=== PATIENT | female | born 1975 | race Caucasian/White ===

== ENCOUNTER 2017-07-05 06:26 | Inpatient (IN) | payer MEDICAID ==
[~2017-07-05] VITALS: Ht 160 cm; Wt 106.4 kg
[~2017-07-05 06:26] MED LIST: AMLO5TAB2 PO; LISI-167 PO; METF500T4 PO; ONDA4TAB10 PO; OXYC5TAB3 PO; SERT50TA5 PO
[2017-07-05] MEDS ORDERED: KETOROLAC 30 MG/1 ML IM ONE (07:30)
[2017-07-05] MEDS ORDERED: KETOROLAC 30 MG/1 ML ONE (07:31)
[2017-07-05 07:37] LABS: BASOPHILS # (AUTO) 0.05 x10^3/uL (0-0.1); BASOPHILS % (AUTO) 0 % (0-1); EOSINOPHILS # (AUTO) 0.36 x10^3/uL (0-0.4); EOSINOPHILS % (AUTO) 3 % (1-7); LYMPHOCYTES # (AUTO) 1.64 x10^3/uL (1-3.4); LYMPHOCYTES % (AUTO) 12 % (22-44); MD NO; MEAN CORPUSCULAR HGB CONC 33.4 g/dL (32.4-35.8); MEAN CORPUSCULAR VOLUME 86.9 fL (80-100); MEAN PLATELET VOLUME 8.1 fL (7.4-10.4); MONOCYTES # (AUTO) 1.01 x10^3/uL (0.2-0.8); MONOCYTES % (AUTO) 7 % (2-9); NEUTROPHILS # (AUTO) 10.83 x10^3/uL (1.8-6.8); NEUTROPHILS % (AUTO) 78 % (42-75); PLATELET COUNT 255 x10^3/uL (130-400); RED BLOOD COUNT 4.84 x10^6/uL (3.82-5.3); RED CELL DISTRIBUTION WIDTH 15.5 % (9.6-15.2)
[2017-07-05 07:50] LABS: ALANINE AMINOTRANSFERASE 30 U/L (12-78); ALBUMIN 3.3 g/dL (3.4-5.0); ANION GAP 6 mmol/L (5-15); CALCIUM 9.4 mg/dL (8.5-10.1); CHLORIDE 103 mmol/L (98-107); CREATININE 1.11 mg/dL (0.55-1.02)
[2017-07-05 07:54] LABS: ALKALINE PHOSPHATASE 96 U/L (45-117); BILIRUBIN,TOTAL 0.2 mg/dL (0.2-1.0); TOTAL PROTEIN 7.5 g/dL (6.4-8.2)
[2017-07-05 08:19] LABS: MICROSCOPIC INDICATED
[2017-07-05 08:27] LABS: CULTURE INDICATED? YES
[2017-07-05 09:30] LABS: CULTURE INDICATED? YES; MICROSCOPIC INDICATED
[2017-07-05] MEDS ORDERED: SODIUM CHLORIDE 0.9% 1,000ML IVBOLUS ONE (11:00)
[2017-07-05] MEDS ORDERED: CEFTRIAXONE PMX 1GM/50ML 50 ML IVPB ONE (11:00)
[2017-07-05] MEDS ORDERED: SODIUM CHLORIDE 0.9% 1,000 ML IV ONE (11:26)
[2017-07-05] MEDS ORDERED: SODIUM CHLORIDE FLUSH 10ML SYR IVF PRN (11:30)
[2017-07-05] MEDS ORDERED: CEFTRIAXONE PMX 1GM/50ML 50 ML ONE (11:43)
[2017-07-05] MEDS ORDERED: morphine SULFATE 10 MG/ML, 1ML IVPush PRN ×2 (12:00→19:00)
[2017-07-05] MEDS ORDERED: HYDROcodone/APAP 5/325 TABLET PO PRN (12:00)
[2017-07-05] MEDS ORDERED: CEFAZOLIN 1,000 MG ONE (13:55)
[2017-07-05] MEDS ORDERED: ONDANSETRON 2MG/ML, 2ML ONE (13:55)
[2017-07-05] MEDS ORDERED: DEXAMETHASONE 4 MG/ML, 1ML ONE (13:55)
[2017-07-05] MEDS ORDERED: PROPOFOL 10 MG/ML, 20ML ONE (13:55)
[2017-07-05] MEDS ORDERED: MIDAZOLAM 1 MG/ML, 2ML ONE (13:55)
[2017-07-05] MEDS ORDERED: FENTANYL PF 100 MCG/2ML ONE (13:56)
[2017-07-05 15:37] VITALS: BP 148/99
[2017-07-05] MEDS: LACTATED RINGERS 1,000 ML IV SCH (15:58)
[2017-07-05] MEDS ORDERED: OMNIPAQUE 350 MG/ML, 50 ML BOTTLE ONE (16:22)
[2017-07-05] MEDS ORDERED: PHENAZOPYRIDINE 200 MG TABLET PO PRN (17:00)
[2017-07-05] MEDS: ACETAMINOPHEN 325 MG TABLET PO PRN ×2 (19:02→23:07)
[2017-07-05 20:28] VITALS: BP 139/91
[2017-07-05] MEDS ORDERED: MORPHINE SULFATE 4 MG/ML, 1ML ONE (21:01)
[2017-07-05] MEDS: CEFTRIAXONE 2 GM in DEXTROSE 5% 50 ML IV SCH (23:03)
[2017-07-05] MEDS ORDERED: CEFTRIAXONE 2 GM in SODIUM CHLORIDE 0.9% 50 ML IV SCH (23:30)
[2017-07-06] MEDS: LACTATED RINGERS 1,000 ML IV SCH (01:00)
[2017-07-06 01:33] VITALS: BP 115/66
[2017-07-06 05:35] LABS: BASOPHILS # (AUTO) 0.03 x10^3/uL (0-0.1); BASOPHILS % (AUTO) 0 % (0-1); EOSINOPHILS % (AUTO) 0 % (1-7); LYMPHOCYTES # (AUTO) 1.55 x10^3/uL (1-3.4); LYMPHOCYTES % (AUTO) 13 % (22-44); MD NO; MEAN CORPUSCULAR HEMOGLOBIN 29.6 pg (27.0-34.8); MEAN CORPUSCULAR HGB CONC 33.4 g/dL (32.4-35.8); MEAN CORPUSCULAR VOLUME 88.6 fL (80-100); MEAN PLATELET VOLUME 8.9 fL (7.4-10.4); MONOCYTES # (AUTO) 0.44 x10^3/uL (0.2-0.8); MONOCYTES % (AUTO) 4 % (2-9); NEUTROPHILS # (AUTO) 10.19 x10^3/uL (1.8-6.8); NEUTROPHILS % (AUTO) 83 % (42-75); PLATELET COUNT 265 x10^3/uL (130-400); RED BLOOD COUNT 4.66 x10^6/uL (3.82-5.3); RED CELL DISTRIBUTION WIDTH 14.8 % (9.6-15.2)
[2017-07-06 05:52] LABS: CHLORIDE 104 mmol/L (98-107)
[2017-07-06 06:02] LABS: ALANINE AMINOTRANSFERASE 24 U/L (12-78); ALKALINE PHOSPHATASE 94 U/L (45-117); ANION GAP 6 mmol/L (5-15); BILIRUBIN,TOTAL 0.2 mg/dL (0.2-1.0); CALCIUM 9.7 mg/dL (8.5-10.1); CREATININE 0.84 mg/dL (0.55-1.02); TOTAL PROTEIN 7.2 g/dL (6.4-8.2)
[2017-07-06 06:35] VITALS: BP 145/88
[2017-07-06] MEDS: ENOXAPARIN 40 MG/0.4 ML SQ SCH (08:00)
[2017-07-06] MEDS: ACETAMINOPHEN 325 MG TABLET PO PRN (08:58)
[2017-07-06 12:32] VITALS: BP 148/87
[2017-07-06 19:01] VITALS: BP 165/107
[2017-07-06 20:55] VITALS: BP 151/98
[2017-07-06] MEDS ORDERED: TEMAZEPAM 15 MG CAPSULE PO PRN (23:00)
[2017-07-06] MEDS: CEFTRIAXONE 2 GM in DEXTROSE 5% 50 ML IV SCH (23:34)
[2017-07-07 01:18] VITALS: BP 172/114
[2017-07-07] MEDS: ACETAMINOPHEN 325 MG TABLET PO PRN (01:28)
[2017-07-07] MEDS ORDERED: hydrALAzine 20 MG/ML, 1ML IV PRN (02:00)
[2017-07-07 03:56] VITALS: BP 150/90
[2017-07-07] MEDS: ENOXAPARIN 40 MG/0.4 ML SQ SCH (08:00)
[2017-07-07 08:27] VITALS: BP_SYST 153; BP_SYST 157; BP_DIAS 109; BP_DIAS 115
[2017-07-07] MEDS ORDERED: CEFD300C37 PO (08:47)
[2017-07-07] MEDS ORDERED: CEFDINIR 300 MG CAPSULE PO SCH (09:00)
== END 2017-07-07 09:38 | disposition home or self-care (01) | DRG 872 ==
LOC: ED 08:01 → EDIP 11:26 → 3NE 15:22
PROVIDERS: ADMIT Internal Medicine Pulmonary Disease; ATTEND Internal Medicine Pulmonary Disease
PROC: 0T9B70Z Drainage of Bladder with Drainage Device, Via Natural or Artificial Opening (ICD-10-PCS; 2017-07-05)
PROC: 0T768DZ Dilation of Right Ureter with Intraluminal Device, Via Natural or Artificial Opening Endoscopic (ICD-10-PCS; principal; 2017-07-05 14:00)
DX: A41.9 Sepsis, unspecified organism (principal); N17.9 Acute kidney failure, unspecified; N13.6 Pyonephrosis; N20.2 Calculus of kidney with calculus of ureter; Z87.442 Personal history of urinary calculi
CPT/HCPCS: 36415; 74176; 74420; 80053; 81001; 83605; 83735; 84145; 84703; 85025; 87086; 87147; 96365; 96372; J0690; J0696; J1100; J1885; J2250; J2405; J2704; J3010; Q9967; C1758; C1769; C2617; J0360; J2270; J7030; J7120

== ENCOUNTER 2017-07-21 08:47 | Day surgery (SDC) | payer MEDICAID ==
[~2017-07-21] VITALS: Ht 160 cm; Wt 110.0 kg
[~2017-07-21 08:47] MED LIST changes: +CEFD300C37 PO
[2017-07-21] MEDS ORDERED: LIDOCAINE-MPF 1%, 2ML ONE (09:26)
[2017-07-21 09:37] LABS: HCG UR SG 1.015 (1.003-1.030)
[2017-07-21] MEDS ORDERED: LACTATED RINGERS 1,000 ML IV SCH (09:40)
[2017-07-21] MEDS ORDERED: TORADOL PO (09:43)
[2017-07-21 09:50] VITALS: BP 147/104
[2017-07-21] MEDS ORDERED: LIDOCAINE-MPF 1%, 2ML INFIL ONE (10:00)
[2017-07-21] MEDS ORDERED: PLEASE ENTER HEIGHT AND WEIGHT MC SCH (10:00)
[2017-07-21] MEDS ORDERED: FENTANYL PF 100 MCG/2ML ONE ×4 (10:03→12:47)
[2017-07-21] MEDS ORDERED: MIDAZOLAM 1 MG/ML, 2ML ONE (10:04)
[2017-07-21] MEDS ORDERED: SCOPOLAMINE PATCH, 1.5MG PATCH.TD72 TD ONE ×2 (10:21→10:30)
[2017-07-21] MEDS ORDERED: GABAPENTIN 300 MG CAPSULE ONE (10:21)
[2017-07-21] MEDS ORDERED: DIAZEPAM 5 MG TABLET ONE (10:22)
[2017-07-21] MEDS ORDERED: GABAPENTIN 300 MG CAPSULE PO ONE (10:30)
[2017-07-21] MEDS ORDERED: DIAZEPAM 5 MG TABLET PO ONE (10:30)
[2017-07-21] MEDS ORDERED: OxyconTIN ER 20 MG TAB.ER PO ONE (10:30)
[2017-07-21] MEDS ORDERED: LABETALOL 5MG/ML, 20ML ONE ×2 (11:05→13:08)
[2017-07-21] MEDS ORDERED: PROPOFOL 10 MG/ML, 20ML ONE ×2 (11:05)
[2017-07-21] MEDS ORDERED: ALBUTEROL HFA 90 MCG/SPRAY ONE (11:11)
[2017-07-21] MEDS ORDERED: EPHEDRINE 50 MG/ML, 1ML IVPush PRN (11:30)
[2017-07-21] MEDS ORDERED: MIDAZOLAM 1 MG/ML, 2ML IV PRN (11:30)
[2017-07-21] MEDS ORDERED: LABETALOL 5MG/ML, 20ML IV PRN (11:30)
[2017-07-21] MEDS ORDERED: ONDANSETRON 2MG/ML, 2ML IVPush PRN (11:30)
[2017-07-21] MEDS ORDERED: LORazepam 2 MG/ML, 1ML IVPush PRN (11:30)
[2017-07-21] MEDS ORDERED: ALBUTEROL/IPRATROPIUM 2.5MG/0.5MG, 3 ML NPPB PRN (11:30)
[2017-07-21] MEDS ORDERED: PROMETHAZINE 25 MG/ML, 1ML IV PRN (11:30)
[2017-07-21] MEDS ORDERED: PROMETHAZINE 12.5 MG SUPP PR PRN (11:30)
[2017-07-21] MEDS ORDERED: KETOROLAC 30 MG/1 ML ONE ×2 (12:28→17:10)
[2017-07-21] MEDS ORDERED: KETOROLAC 30 MG/1 ML IVPush ONE (12:30)
[2017-07-21] MEDS: FENTANYL PF 100 MCG/2ML IV PRN ×3 (12:40→13:26)
[2017-07-21] MEDS ORDERED: LORazepam 2 MG/ML, 1ML ONE (12:46)
[2017-07-21] MEDS ORDERED: OXYcodone 5 MG/5 ML ORAL.SOL UDC PO PRN (13:30)
[2017-07-21] MEDS ORDERED: KETOROLAC 30 MG/1 ML IV PRN (13:30)
[2017-07-21] MEDS ORDERED: OXYcodone/APAP 5/325MG TABLET PO PRN (15:00)
[2017-07-21] MEDS ORDERED: SUCCINYLCHOLINE 20 MG/ML, 10ML ONE (15:36)
[2017-07-21] MEDS: LABETALOL 5MG/ML, 20ML IVPush PRN ×2 (15:43→16:19)
[2017-07-21] MEDS ORDERED: hydrALAzine 20 MG/ML, 1ML IV ONE (16:30)
[2017-07-21] MEDS ORDERED: hydrALAzine 20 MG/ML, 1ML ONE (16:30)
[2017-07-21] MEDS ORDERED: KETOROLAC 30 MG/1 ML IVPush SCH (19:00)
== END 2017-07-21 17:40 ==
LOC: OUT 08:47
PROVIDERS: ATTEND Urology
DX: N20.0 Calculus of kidney (principal); E66.01 Morbid (severe) obesity due to excess calories; Z68.41 Body mass index [BMI] 40.0-44.9, adult; Z88.8 Allergy status to other drugs, medicaments and biological substances
CPT/HCPCS: 52353; 74420; 81025; 82360; 88300; 93005; C1758; C1769; J0330; J1885; J2060; J2250; J2704; J3010; J3490; J7120

== ENCOUNTER 2018-01-24 13:30 | Emergency (ER) | payer MEDICAID ==
[~2018-01-24] VITALS: Ht 160 cm; Wt 109.4 kg
[~2018-01-24 13:30] MED LIST changes: -AMLO5TAB2 PO; +AMLO5TAB7 PO; +METF500T17 PO; -METF500T4 PO; +TORADOL PO
[2018-01-24 13:48] VITALS: BP 141/96
== END 2018-01-24 14:50 | disposition home or self-care (01) ==
LOC: ED 14:40
DX: S80.862A Insect bite (nonvenomous), left lower leg, initial encounter (principal); W57.XXXA Bitten or stung by nonvenomous insect and other nonvenomous arthropods, initial encounter; Y93.89 Activity, other specified; Y92.89 Other specified places as the place of occurrence of the external cause; Y99.8 Other external cause status
CPT/HCPCS: 99283

== ENCOUNTER 2018-02-06 17:18 | Emergency (ER) | payer MEDICAID ==
[~2018-02-06] VITALS: Ht 160 cm; Wt 110.0 kg
[2018-02-06 18:44] VITALS: BP 173/114
[2018-02-06] MEDS ORDERED: CEPHALEXIN 500 MG CAPSULE ONE (19:27)
== END 2018-02-06 19:32 | disposition home or self-care (01) ==
LOC: ED 17:54
DX: L03.032 Cellulitis of left toe (principal); L03.031 Cellulitis of right toe; I10 Essential (primary) hypertension
CPT/HCPCS: 82962; 99283

== ENCOUNTER 2018-05-03 16:32 | Emergency (ER) | payer MEDICAID ==
[~2018-05-03] VITALS: Ht 160 cm; Wt 108.0 kg
[~2018-05-03 16:32] MED LIST changes: +AMLO-150 PO; -AMLO5TAB7 PO; +SERT50TA28 PO; -SERT50TA5 PO
[2018-05-03 17:28] LABS: BASOPHILS # (AUTO) 0.02 x10^3/uL (0-0.1); BASOPHILS % (AUTO) 0 % (0-1); EOSINOPHILS # (AUTO) 0.18 x10^3/uL (0-0.4); EOSINOPHILS % (AUTO) 2 % (1-7); LYMPHOCYTES # (AUTO) 1.79 x10^3/uL (1-3.4); LYMPHOCYTES % (AUTO) 15 % (22-44); MD NO; MEAN CORPUSCULAR VOLUME 87.8 fL (80-100); MEAN PLATELET VOLUME 8.7 fL (7.4-10.4); MONOCYTES # (AUTO) 0.88 x10^3/uL (0.2-0.8); MONOCYTES % (AUTO) 8 % (2-9); NEUTROPHILS # (AUTO) 8.75 x10^3/uL (1.8-6.8); NEUTROPHILS % (AUTO) 75 % (42-75); PLATELET COUNT 261 x10^3/uL (130-400); RED BLOOD COUNT 5.06 x10^6/uL (3.82-5.3); RED CELL DISTRIBUTION WIDTH 14.8 % (9.6-15.2)
[2018-05-03 17:41] LABS: ALBUMIN 3.3 g/dL (3.4-5.0); ANION GAP 8 mmol/L (5-15); CALCIUM 9.5 mg/dL (8.5-10.1); CHLORIDE 106 mmol/L (98-107); CREATININE 1.56 mg/dL (0.55-1.02)
--- NOTE | 2018-05-03 18:39 | NUR ---
PT AMBULATORY TO ROOM FROM LOBBY.
[2018-05-03] MEDS ORDERED: HYDROmorphone 2 MG/ML, 1ML IVPush PRN (19:30)
[2018-05-03] MEDS ORDERED: ONDANSETRON 2MG/ML, 2ML IVPush ONE (19:30)
[2018-05-03] MEDS ORDERED: KETOROLAC 30 MG/1 ML IVPush ONE (19:30)
[2018-05-03] MEDS ORDERED: ONDANSETRON 2MG/ML, 2ML ONE (20:03)
[2018-05-03] MEDS ORDERED: KETOROLAC 30 MG/1 ML ONE (20:03)
[2018-05-03] MEDS ORDERED: HYDROmorphone 2 MG/ML, 1ML ONE ×2 (20:04→20:56)
--- NOTE | 2018-05-03 20:14 | NUR ---
QUICK CATH URINE SPECIMEN OBTAINED; WILL BE WALKED TO LAB.
--- NOTE | 2018-05-03 20:25 | NUR ---
AMBULATORY TO & FROM [facility] W/OUT INCIDENT; GAIT STEADY
--- NOTE | 2018-05-03 20:32 | NUR ---
IV ATTEMPTED X 1; UNSUCCESSFUL. WARM BLANKET APPLIED TO ARMS BILAT.
[2018-05-03 20:50] LABS: MICROSCOPIC INDICATED
--- NOTE | 2018-05-03 20:56 | NUR ---
VO FROM DR WESLEY: CANCEL IV LOCK. GIVE PAIN MEDS IM (DILAUDID & TORADOL).
[2018-05-03 20:57] LABS: CULTURE INDICATED? NO
[2018-05-03] MEDS ORDERED: HYDROmorphone 2 MG/ML, 1ML IM PRN (21:00)
--- NOTE | 2018-05-03 21:04 | NUR ---
RETURNED FROM CT.
[2018-05-03] MEDS ORDERED: TAMSULOSIN 0.4 MG CAP.ER.24H PO ONE (22:00)
[2018-05-03] MEDS ORDERED: DOXYCYCLINE 100MG TABLET PO ONE (22:00)
[2018-05-03] MEDS ORDERED: TAMSULOSIN 0.4 MG CAP.ER.24H ONE (22:07)
[2018-05-03] MEDS ORDERED: DOXYCYCLINE 100MG TABLET ONE (22:07)
--- NOTE | 2018-05-03 22:30 | NUR ---
PT AMBULATORY TO & FROM BR W/OUT INCIDENT; GAIT STEADY.
[2018-05-03 22:36] VITALS: BP 135/94
== END 2018-05-03 22:38 | disposition home or self-care (01) ==
LOC: ED 19:38
DX: N20.1 Calculus of ureter (principal); J18.9 Pneumonia, unspecified organism; F17.200 Nicotine dependence, unspecified, uncomplicated
CPT/HCPCS: 36415; 74176; 80048; 81001; 81025; 82040; 85025; 96372; 96374; 99284; J1170; J1885

== ENCOUNTER 2018-09-01 18:40 | Emergency (ER) | payer MEDICAID ==
[~2018-09-01] VITALS: Ht 160 cm; Wt 111.5 kg
[2018-09-01 18:42] VITALS: BP 178/132
--- NOTE | 2018-09-01 19:26 | NUR ---
PT TO ROOM PLACED IN A GOWN AND ON THE MONITOR. PT AWAITING ERP AND ORDERS.
[2018-09-01] MEDS ORDERED: HYDROmorphone 1 MG/ML, 1ML VIAL ONE (19:42)
[2018-09-01] MEDS ORDERED: ONDANSETRON ODT 4 MG ONE (19:42)
--- NOTE | 2018-09-01 19:48 | NUR ---
PT TO X-RAY
[2018-09-01] MEDS ORDERED: HYDROmorphone 1 MG/ML, 1ML INJ IM PRN (20:00)
[2018-09-01] MEDS ORDERED: ONDANSETRON ODT 4 MG PO ONE (20:00)
--- NOTE | 2018-09-01 20:06 | NUR ---
PT MEDICATED ORDERED AND AWAITING X-RAY RESULTS.
== END 2018-09-01 20:37 | disposition home or self-care (01) ==
LOC: ED 20:30
DX: M47.896 Other spondylosis, lumbar region (principal); F17.200 Nicotine dependence, unspecified, uncomplicated; I10 Essential (primary) hypertension
CPT/HCPCS: 72110; 96372; 99283; J1170; Q0162

== ENCOUNTER 2020-03-29 22:57 | Inpatient (IN) | payer MEDICAID ==
[~2020-03-29] VITALS: Ht 157.5 cm; Wt 119.0 kg
--- NOTE | 2020-03-29 23:16 | NUR ---
IVF pre hospital 250ml ns. Upon arrival 1Liter NS wide open. 91% on RA,placed on 2L up to 98%. Lab here drawing all bloods and x2 bc. PCXR done. Will assist pt to bathroom for clean catch.
--- NOTE | 2020-03-29 23:22 | NUR ---
bc x2 drawn by lab.
[2020-03-29] MEDS ORDERED: SODIUM CHLORIDE 0.9% 1,000ML IVBOLUS ONE (23:30)
[2020-03-29] MEDS ORDERED: SODIUM CHLORIDE FLUSH 10ML SYR IVF ONE (23:30)
[2020-03-29] MEDS ORDERED: PIPERACILLIN/TAZO/PMX 4.5GM 100 ML IVPB ONE (23:30)
--- NOTE | 2020-03-29 23:40 | NUR ---
Clean catch urine collected and sent.
[2020-03-29] MEDS ORDERED: VANCOMYCIN 2,500 MG in SODIUM CHLORIDE 0.9% 500 ML IV ONE (23:45)
[2020-03-29 23:47] LABS: MEAN CORPUSCULAR HEMOGLOBIN 29.3 pg (27.0-34.8); MEAN CORPUSCULAR HGB CONC 32.9 g/dL (32.4-35.8); MEAN PLATELET VOLUME 9.1 fL (7.4-10.4); PLATELET COUNT 220 x10^3/uL (130-400); RED BLOOD COUNT 5.05 x10^6/uL (3.82-5.3); RED CELL DISTRIBUTION WIDTH 14.8 % (9.6-15.2)
[2020-03-29] MEDS ORDERED: [UNRECOGNIZED DRUG - REMARK] (23:51)
[2020-03-29 23:53] LABS: ALANINE AMINOTRANSFERASE 33 U/L (12-78); ALBUMIN 3.2 g/dL (3.4-5.0); ANION GAP 5 mmol/L (5-15); CALCIUM 9.8 mg/dL (8.5-10.1); CHLORIDE 101 mmol/L (98-107); CREATININE 1.21 mg/dL (0.55-1.02)
--- NOTE | 2020-03-29 23:56 | NUR ---
ABx started, x2 bc have been drawn by lab. Sharma placed on pt.
[2020-03-30] LABS: ALKALINE PHOSPHATASE 108 U/L (45-117); BILIRUBIN,TOTAL 0.7 mg/dL (0.2-1.0); TOTAL PROTEIN 7.7 g/dL (6.4-8.2)
[2020-03-30] MEDS ORDERED: VANCOMYCIN PER PHARMACY MC ONE
--- NOTE | 2020-03-30 00:06 | NUR ---
Dominick requested from pharmacy. 2Liters NS infused. VS updated.
[2020-03-30 00:09] LABS: C-REACTIVE PROTEIN, QUANT > 19.00 mg/dL (0.02-0.49)
--- NOTE | 2020-03-30 00:12 | NUR ---
Pt sleeping, RR unlabored. Requested vanco from pharmacy. Waiting for CT of leg r/o necro fascitis. VSS. Will continue to monitor. Pt to be admitted, med rec only x1 htn med unknown name.
[2020-03-30 00:14] LABS: MD YES
[2020-03-30 00:16] LABS: BAND#(MANUAL) 0.85 x10^3/uL; BANDS%(MANUAL) 4 % (0-7); LYMPH#(MANUAL) 2.34 x10^3/uL (1-3.4); LYMPHS% (MANUAL) 11 % (22-44); MONOS#(MANUAL) 0.43 x10^3/uL (0.3-2.7); MONOS% (MANUAL) 2 % (2-9); SEG#(MANUAL) 17.68 x10^3/uL (1.8-6.8); SEGS% (MANUAL) 83 % (42-75)
[2020-03-30 00:17] LABS: <PLATELET ESTIMATE> ADEQUATE; <RBC MORPHOLOGY> NORMAL; LARGE PLATELETS 1+
--- NOTE | 2020-03-30 00:33 | NUR ---
Daysi RN: Pt to ct with tech at this time.
[2020-03-30] MEDS ORDERED: OMNIPAQUE 350 MG/ML, 100ML BOTTLE ONE (00:36)
[2020-03-30 00:48] LABS: MICROSCOPIC INDICATED
--- NOTE | 2020-03-30 00:57 | NUR ---
Vanco infusion started. VSS. Pt sleeping, RR equal and unlabored.
[2020-03-30] MEDS ORDERED: SODIUM CHLORIDE 0.9% 1,000 ML IV ONE (01:00)
--- NOTE | 2020-03-30 01:08 | NUR ---
Dr Santoyo in to update pt on admission status and POC> Pt agrees with POC, will go to CT to r/o renal stone. Pt states she feels much better than when she came in. Family updated on status per request of pt. Waiting for CT.
--- NOTE | 2020-03-30 01:17 | NUR ---
Pt taken to CT via gurney. Pt will have med/surg bed within hour or so, no hospital bed ordered.
[2020-03-30] MEDS ORDERED: VANCOMYCIN PER PHARMACY MC PRN (01:30)
[2020-03-30] MEDS ORDERED: PHARMACY MAY ADJ FOR RENAL FX MC PRN (01:30)
[2020-03-30] MEDS ORDERED: KETOROLAC 30 MG/1 ML IV PRN (01:30)
[2020-03-30] MEDS ORDERED: hydrALAzine 20 MG/ML, 1ML IVPush PRN (01:30)
[2020-03-30] MEDS ORDERED: PROMETHAZINE 25 MG/ML, 1ML IM PRN (01:30)
[2020-03-30] MEDS ORDERED: HYDROmorphone 1 MG/ML, 1ML INJ ONE (01:31)
[2020-03-30] MEDS: HYDROmorphone 2 MG/ML, 1ML IVPush PRN ×4 (01:34→22:41)
--- NOTE | 2020-03-30 01:39 | NUR ---
Back from CT now c/o flank/back pain to right becoming severe no n/v. Medicated per order, will continue to monitor. VSS. Addendum: 03/30/20 at 0146 by [email or web address] Ammend: Left flank/back area. Pt now reports pain decrease, appears more comfotable. No n/v. Waiting for med/surg bed.
--- NOTE | 2020-03-30 02:06 | NUR ---
Concern re: placement of this pt and potential if covid pos. Discussed with Dr Maciel. CT still being read, rapid covid done and sent.
[2020-03-30] MEDS ORDERED: ACETAMINOPHEN 325 MG TABLET ONE (02:10)
--- NOTE | 2020-03-30 02:29 | NUR ---
Hunt placed via sterile technique, clear yellow urine output. SPecimen sent for repeat u/a. Pt has decrease in pain since meds. CT neg for obs stone. If rapid covid neg, pt will proceed to onc admit.
[2020-03-30 02:56] LABS: MICROSCOPIC INDICATED
--- NOTE | 2020-03-30 03:13 | NUR ---
IV line to hand flushed. Vanco finished. U/s lower ext done. Belongings in bag on back of [facility], tx to onc floor after report given. Pt agrees with poc. VSS.
[2020-03-30] MEDS ORDERED: PHARMACOKINETIC CONSULTATION MC ONE (03:30)
[2020-03-30] MEDS ORDERED: PHARMACOKINETIC MONITORING MC PRN (03:30)
[2020-03-30] MEDS: LACTATED RINGERS 1,000 ML IV SCH ×3 (03:45→19:54)
[2020-03-30 03:50] VITALS: BP 119/87
[2020-03-30] MEDS ORDERED: AMLO-210 PO (04:00)
[2020-03-30] MEDS: PIPERACILLIN/TAZO/PMX 3.375GM 50 ML IV SCH ×3 (05:36→18:29)
[2020-03-30 08:27] LABS: BASOPHILS % (AUTO) 0 % (0-1); EOSINOPHILS % (AUTO) 0 % (1-7); LYMPHOCYTES % (AUTO) 10 % (22-44); MEAN CORPUSCULAR HEMOGLOBIN 29.9 pg (27.0-34.8); MEAN CORPUSCULAR HGB CONC 33.1 g/dL (32.4-35.8); MEAN PLATELET VOLUME 8.9 fL (7.4-10.4); MONOCYTES % (AUTO) 8 % (2-9); NEUTROPHILS % (AUTO) 81 % (42-75); PLATELET COUNT 172 x10^3/uL (130-400); RED CELL DISTRIBUTION WIDTH 15.1 % (9.6-15.2)
[2020-03-30 08:30] LABS: MD NO
[2020-03-30 08:32] LABS: ANION GAP 4 mmol/L (5-15); CALCIUM 9.5 mg/dL (8.5-10.1); CHLORIDE 106 mmol/L (98-107)
[2020-03-30 08:33] LABS: CREATININE 1.08 mg/dL (0.55-1.02)
[2020-03-30] MEDS: SENNA/DOCUSATE TABLET PO SCH (08:50)
[2020-03-30] MEDS: ENOXAPARIN 40 MG/0.4 ML SQ SCH (08:50)
[2020-03-30 09:45] VITALS: BP 136/81
[2020-03-30 15:09] VITALS: BP 130/87
[2020-03-30] MEDS ORDERED: DEXTROSE 50%, 50ML SYRINGE IVPush PRN (16:30)
[2020-03-30] MEDS ORDERED: GLUCAGON 1 MG IM PRN (16:30)
[2020-03-30] MEDS ORDERED: DEXTROSE 4 GM TAB.CHEW PO PRN (16:30)
[2020-03-30 19:07] VITALS: BP 129/76
[2020-03-30] MEDS: VANCOMYCIN 2,000 MG in SODIUM CHLORIDE 0.9% 500 ML IV SCH (19:50)
[2020-03-30] MEDS: SODIUM CHLORIDE FLUSH 10ML SYR IVF SCH (19:54)
[2020-03-30] MEDS: INSULIN LISPRO 100 UNITS/ML, PEN SQ-INSULIN SCH (21:00)
[2020-03-31] MEDS: PIPERACILLIN/TAZO/PMX 3.375GM 50 ML IV SCH ×4 (01:07→18:32)
[2020-03-31 01:27] VITALS: BP 137/83
[2020-03-31] MEDS: ONDANSETRON 2MG/ML, 2ML IVPush PRN ×2 (03:39→10:45)
[2020-03-31] MEDS: LACTATED RINGERS 1,000 ML IV SCH ×2 (03:40→11:12)
[2020-03-31 04:12] LABS: BASOPHILS % (AUTO) 0 % (0-1); EOSINOPHILS % (AUTO) 1 % (1-7); LYMPHOCYTES % (AUTO) 8 % (22-44); MEAN CORPUSCULAR HEMOGLOBIN 29.4 pg (27.0-34.8); MEAN CORPUSCULAR HGB CONC 32.7 g/dL (32.4-35.8); MEAN PLATELET VOLUME 8.7 fL (7.4-10.4); MONOCYTES % (AUTO) 7 % (2-9); NEUTROPHILS % (AUTO) 84 % (42-75); PLATELET COUNT 182 x10^3/uL (130-400); RED BLOOD COUNT 4.31 x10^6/uL (3.82-5.3); RED CELL DISTRIBUTION WIDTH 14.9 % (9.6-15.2)
[2020-03-31] MEDS: ACETAMINOPHEN 325 MG TABLET PO PRN ×3 (04:15→22:12)
[2020-03-31] MEDS: HYDROmorphone 2 MG/ML, 1ML IVPush PRN ×3 (04:16→22:12)
[2020-03-31 04:19] LABS: MD NO
[2020-03-31 04:25] LABS: ALBUMIN 2.6 g/dL (3.4-5.0); CALCIUM 9.8 mg/dL (8.5-10.1); CHLORIDE 105 mmol/L (98-107)
[2020-03-31 04:31] LABS: ALANINE AMINOTRANSFERASE 26 U/L (12-78); ALKALINE PHOSPHATASE 100 U/L (45-117); ANION GAP 4 mmol/L (5-15); BILIRUBIN,TOTAL 0.6 mg/dL (0.2-1.0); CREATININE 1.17 mg/dL (0.55-1.02); TOTAL PROTEIN 6.6 g/dL (6.4-8.2)
[2020-03-31] MEDS: PANTOPRAZOLE 40MG TABLET PO SCH (06:06)
[2020-03-31 06:43] VITALS: BP 109/66
[2020-03-31] MEDS: SODIUM CHLORIDE FLUSH 10ML SYR IVF SCH ×2 (07:49→21:39)
[2020-03-31] MEDS: ENOXAPARIN 40 MG/0.4 ML SQ SCH (07:50)
[2020-03-31] MEDS: SENNA/DOCUSATE TABLET PO SCH (07:50)
[2020-03-31 08:08] VITALS: BP 103/68
[2020-03-31] MEDS: INSULIN LISPRO 100 UNITS/ML, PEN SQ-INSULIN SCH ×4 (08:40→21:00)
[2020-03-31] MEDS ORDERED: NALOXONE 1 MG/ML, 2ML ONE (12:44)
[2020-03-31] MEDS ORDERED: NALOXONE 0.4 MG/ML, 1ML ONE (12:44)
[2020-03-31] MEDS ORDERED: CODE BLUE RESPONSE XX ONE (13:30)
[2020-03-31] MEDS ORDERED: NALOXONE 0.4 MG/ML, 1ML IVPush PRN (14:00)
[2020-03-31 14:15] LABS: BASOPHILS % (AUTO) 0 % (0-1); EOSINOPHILS % (AUTO) 0 % (1-7); LYMPHOCYTES % (AUTO) 10 % (22-44); MEAN CORPUSCULAR HEMOGLOBIN 29.4 pg (27.0-34.8); MEAN CORPUSCULAR HGB CONC 32.2 g/dL (32.4-35.8); MEAN PLATELET VOLUME 8.7 fL (7.4-10.4); MONOCYTES % (AUTO) 4 % (2-9); NEUTROPHILS % (AUTO) 85 % (42-75); PLATELET COUNT 196 x10^3/uL (130-400)
[2020-03-31] MEDS: VANCOMYCIN 2,000 MG in SODIUM CHLORIDE 0.9% 500 ML IV SCH (14:18)
[2020-03-31 14:27] LABS: ALANINE AMINOTRANSFERASE 82 U/L (12-78); ALBUMIN 2.4 g/dL (3.4-5.0); ANION GAP 10 mmol/L (5-15); CALCIUM 9.4 mg/dL (8.5-10.1); CHLORIDE 104 mmol/L (98-107); CREATININE 2.17 mg/dL (0.55-1.02)
[2020-03-31 14:31] LABS: ALKALINE PHOSPHATASE 112 U/L (45-117); BILIRUBIN,TOTAL 0.5 mg/dL (0.2-1.0); TOTAL PROTEIN 6.6 g/dL (6.4-8.2); TROPONIN I 0.062 ng/mL (0.000-0.045)
[2020-03-31 14:42] LABS: MD SCAN
[2020-03-31] MEDS ORDERED: LACTATED RINGERS 1,000 ML IVBOLUS ONE (15:00)
[2020-03-31 19:55] LABS: TROPONIN I 0.288 ng/mL (0.000-0.045)
[2020-04-01] MEDS: PIPERACILLIN/TAZO/PMX 3.375GM 50 ML IV SCH ×4 (00:40→17:44)
[2020-04-01] MEDS: HYDROmorphone 2 MG/ML, 1ML IVPush PRN ×3 (03:22→21:28)
[2020-04-01] MEDS: ACETAMINOPHEN 325 MG TABLET PO PRN ×3 (03:23→17:42)
[2020-04-01 05:00] LABS: ALANINE AMINOTRANSFERASE 320 U/L (12-78); ALBUMIN 2.3 g/dL (3.4-5.0); ANION GAP 6 mmol/L (5-15); CALCIUM 9.8 mg/dL (8.5-10.1); CHLORIDE 104 mmol/L (98-107); CREATININE 2.08 mg/dL (0.55-1.02)
[2020-04-01 05:02] LABS: ALKALINE PHOSPHATASE 109 U/L (45-117); BILIRUBIN,TOTAL 0.6 mg/dL (0.2-1.0); TOTAL PROTEIN 6.4 g/dL (6.4-8.2)
[2020-04-01] MEDS: PANTOPRAZOLE 40MG TABLET PO SCH (06:35)
[2020-04-01] MEDS: INSULIN LISPRO 100 UNITS/ML, PEN SQ-INSULIN SCH ×4 (07:00→20:58)
[2020-04-01] MEDS: LINEZOLID 600 MG TABLET PO SCH ×2 (07:58→20:58)
[2020-04-01] MEDS: SENNA/DOCUSATE TABLET PO SCH (07:58)
[2020-04-01] MEDS: ENOXAPARIN 40 MG/0.4 ML SQ SCH (07:58)
[2020-04-01] MEDS: SODIUM CHLORIDE FLUSH 10ML SYR IVF SCH ×2 (07:59→20:56)
[2020-04-01 08:49] LABS: TROPONIN I 0.199 ng/mL (0.000-0.045)
[2020-04-01] MEDS: LIDODERM 5% PATCH TD SCH (10:35)
[2020-04-01] MEDS: ONDANSETRON 2MG/ML, 2ML IVPush PRN (15:24)
[2020-04-01] MEDS: LIDODERM REMOVE PATCH NOTE XX SCH (21:00)
[2020-04-02] MEDS ORDERED: OXYcodone/APAP 5/325MG TABLET PO PRN
[2020-04-02] MEDS: ONDANSETRON 2MG/ML, 2ML IVPush PRN (00:30)
[2020-04-02] MEDS: PIPERACILLIN/TAZO/PMX 3.375GM 50 ML IV SCH ×4 (00:42→22:03)
[2020-04-02 04:50] LABS: BASOPHILS % (AUTO) 1 % (0-1); EOSINOPHILS % (AUTO) 4 % (1-7); LYMPHOCYTES % (AUTO) 11 % (22-44); MEAN CORPUSCULAR HEMOGLOBIN 29.6 pg (27.0-34.8); MEAN CORPUSCULAR HGB CONC 33.2 g/dL (32.4-35.8); MEAN PLATELET VOLUME 8.9 fL (7.4-10.4); MONOCYTES % (AUTO) 7 % (2-9); NEUTROPHILS % (AUTO) 78 % (42-75); PLATELET COUNT 214 x10^3/uL (130-400); RED BLOOD COUNT 4.02 x10^6/uL (3.82-5.3); RED CELL DISTRIBUTION WIDTH 14.9 % (9.6-15.2)
[2020-04-02 04:51] LABS: ALBUMIN 2.4 g/dL (3.4-5.0); ANION GAP 6 mmol/L (5-15); CALCIUM 10.1 mg/dL (8.5-10.1); CHLORIDE 104 mmol/L (98-107)
[2020-04-02 04:54] LABS: ALANINE AMINOTRANSFERASE 298 U/L (12-78); ALKALINE PHOSPHATASE 116 U/L (45-117); BILIRUBIN,TOTAL 0.6 mg/dL (0.2-1.0); CREATININE 1.82 mg/dL (0.55-1.02); TOTAL PROTEIN 6.9 g/dL (6.4-8.2)
[2020-04-02 04:58] LABS: MD NO
[2020-04-02] MEDS: HYDROmorphone 2 MG/ML, 1ML IVPush PRN (05:30)
[2020-04-02] MEDS: PANTOPRAZOLE 40MG TABLET PO SCH (06:16)
[2020-04-02] MEDS ORDERED: OXYcodone 5 MG/5 ML ORAL.SOL UDC PO PRN (06:30)
[2020-04-02] MEDS: INSULIN LISPRO 100 UNITS/ML, PEN SQ-INSULIN SCH ×4 (08:09→20:52)
[2020-04-02] MEDS: ACETAMINOPHEN 325 MG TABLET PO PRN ×2 (08:10→19:11)
[2020-04-02] MEDS: SENNA/DOCUSATE TABLET PO SCH (08:10)
[2020-04-02] MEDS: SODIUM CHLORIDE FLUSH 10ML SYR IVF SCH ×2 (08:11→20:52)
[2020-04-02] MEDS: ENOXAPARIN 30 MG/0.3 ML SQ SCH ×2 (08:11→20:52)
[2020-04-02] MEDS: LIDODERM 5% PATCH TD SCH (08:12)
[2020-04-02] MEDS ORDERED: ENOXAPARIN 30 MG/0.3 ML SQ SCH (09:00)
[2020-04-02] MEDS: OXYcodone IR 5MG TABLET PO PRN ×2 (14:49→21:03)
[2020-04-02 19:32] VITALS: BP 139/90
[2020-04-02] MEDS: LIDODERM REMOVE PATCH NOTE XX SCH (20:56)
[2020-04-03 00:18] VITALS: BP 125/81
[2020-04-03] MEDS: OXYcodone IR 5MG TABLET PO PRN (02:37)
[2020-04-03] MEDS: PIPERACILLIN/TAZO/PMX 3.375GM 50 ML IV SCH ×4 (03:57→21:42)
[2020-04-03 05:40] LABS: ALBUMIN 2.4 g/dL (3.4-5.0); ANION GAP 2 mmol/L (5-15); CHLORIDE 105 mmol/L (98-107)
[2020-04-03 05:44] LABS: CREATININE 1.56 mg/dL (0.55-1.02)
[2020-04-03 05:45] LABS: ALANINE AMINOTRANSFERASE 204 U/L (12-78); ALKALINE PHOSPHATASE 132 U/L (45-117); BILIRUBIN,TOTAL 0.5 mg/dL (0.2-1.0); TOTAL PROTEIN 6.7 g/dL (6.4-8.2)
[2020-04-03] MEDS: PANTOPRAZOLE 40MG TABLET PO SCH (06:04)
[2020-04-03] MEDS: ACETAMINOPHEN 325 MG TABLET PO PRN (06:15)
[2020-04-03] MEDS: INSULIN LISPRO 100 UNITS/ML, PEN SQ-INSULIN SCH ×4 (07:00→21:00)
[2020-04-03 07:23] VITALS: BP 137/84
[2020-04-03] MEDS: SENNA/DOCUSATE TABLET PO SCH (09:28)
[2020-04-03] MEDS: ENOXAPARIN 30 MG/0.3 ML SQ SCH ×2 (09:28→21:43)
[2020-04-03] MEDS: LIDODERM 5% PATCH TD SCH (09:29)
[2020-04-03] MEDS: SODIUM CHLORIDE FLUSH 10ML SYR IVF SCH ×2 (09:30→21:43)
[2020-04-03] MEDS: BUTALB/APAP/CAFFEINE 50MG/325MG/40MG PO PRN ×2 (11:12→21:35)
[2020-04-03] MEDS ORDERED: MAGNESIUM HYDROXIDE 8%, 30ML UDC PO PRN (12:30)
[2020-04-03 13:48] VITALS: BP 133/82
[2020-04-03 18:29] VITALS: BP 138/88
[2020-04-03] MEDS: LIDODERM REMOVE PATCH NOTE XX SCH (21:00)
[2020-04-04 01:14] VITALS: BP 144/98
[2020-04-04] MEDS: PIPERACILLIN/TAZO/PMX 3.375GM 50 ML IV SCH ×2 (03:56→10:46)
[2020-04-04 05:25] LABS: BASOPHILS % (AUTO) 0 % (0-1); EOSINOPHILS % (AUTO) 3 % (1-7); LYMPHOCYTES % (AUTO) 13 % (22-44); MEAN CORPUSCULAR HEMOGLOBIN 29.8 pg (27.0-34.8); MEAN CORPUSCULAR HGB CONC 33.6 g/dL (32.4-35.8); MEAN PLATELET VOLUME 8.4 fL (7.4-10.4); MONOCYTES % (AUTO) 6 % (2-9); NEUTROPHILS % (AUTO) 77 % (42-75); PLATELET COUNT 255 x10^3/uL (130-400); RED BLOOD COUNT 3.93 x10^6/uL (3.82-5.3); RED CELL DISTRIBUTION WIDTH 14.3 % (9.6-15.2)
[2020-04-04] MEDS ORDERED: MAALOX/HYOSCYAMINE/LIDOCAINE 45 ML BTL PO ONE (06:00)
[2020-04-04 06:15] LABS: MD SCAN
[2020-04-04] MEDS: PANTOPRAZOLE 40MG TABLET PO SCH (06:19)
[2020-04-04] MEDS: INSULIN LISPRO 100 UNITS/ML, PEN SQ-INSULIN SCH ×4 (07:00→21:34)
[2020-04-04 07:04] VITALS: BP 146/89
[2020-04-04 07:46] LABS: CHLORIDE 103 mmol/L (98-107)
[2020-04-04] MEDS: SENNA/DOCUSATE TABLET PO SCH (08:25)
[2020-04-04] MEDS: LIDODERM 5% PATCH TD SCH (08:25)
[2020-04-04] MEDS: ENOXAPARIN 30 MG/0.3 ML SQ SCH ×2 (08:30→21:30)
[2020-04-04] MEDS: SODIUM CHLORIDE FLUSH 10ML SYR IVF SCH ×2 (09:00→21:31)
[2020-04-04 09:01] LABS: ALANINE AMINOTRANSFERASE 141 U/L (12-78); ALBUMIN 2.5 g/dL (3.4-5.0); ALKALINE PHOSPHATASE 137 U/L (45-117); BILIRUBIN,TOTAL 0.5 mg/dL (0.2-1.0); CALCIUM 10.2 mg/dL (8.5-10.1); CREATININE 1.29 mg/dL (0.55-1.02); TOTAL PROTEIN 6.8 g/dL (6.4-8.2)
[2020-04-04 09:08] LABS: ANION GAP 7 mmol/L (5-15)
[2020-04-04] MEDS: AMOXICILLIN/CLAV 875-125MG TABLET PO SCH ×2 (12:25→21:32)
[2020-04-04 12:34] VITALS: BP 123/79
[2020-04-04] MEDS: BUTALB/APAP/CAFFEINE 50MG/325MG/40MG PO PRN (12:37)
[2020-04-04 19:30] VITALS: BP 148/83
[2020-04-04] MEDS: LIDODERM REMOVE PATCH NOTE XX SCH (19:32)
[2020-04-04] MEDS ORDERED: CALCIUM CARBONATE 500 MG TAB.CHEW PO PRN (21:00)
[2020-04-05] MEDS ORDERED: MELATONIN 5 MG TABLET PO PRN (01:00)
[2020-04-05] MEDS: OXYcodone IR 5MG TABLET PO PRN (01:07)
[2020-04-05] MEDS ORDERED: MAALOX/HYOSCYAMINE/LIDOCAINE 45 ML BTL PO ONE (01:30)
[2020-04-05 02:45] VITALS: BP 150/97
[2020-04-05] MEDS: PANTOPRAZOLE 40MG TABLET PO SCH (06:15)
[2020-04-05] MEDS ORDERED: AMOX1TAB12 PO (07:30)
== END 2020-04-05 08:50 | disposition home or self-care (01) | DRG 871 ==
LOC: ED 03-30 00:43 → EDIP 03-30 01:09 → 4NW 03-30 03:20 → CCU 03-31 13:51 → 5SO 04-02 12:29
PROVIDERS: ADMIT Family Medicine; ATTEND Family Medicine
PROC: 0T9B70Z Drainage of Bladder with Drainage Device, Via Natural or Artificial Opening (ICD-10-PCS; 2020-03-30)
PROC: 5A09457 Assistance with Respiratory Ventilation, 24-96 Consecutive Hours, Continuous Positive Airway Pressure (ICD-10-PCS; principal; 2020-03-31)
DX: A41.9 Sepsis, unspecified organism (principal); J96.01 Acute respiratory failure with hypoxia; N17.0 Acute kidney failure with tubular necrosis; Z68.42 Body mass index [BMI] 45.0-49.9, adult; L03.115 Cellulitis of right lower limb; E87.1 Hypo-osmolality and hyponatremia; L03.116 Cellulitis of left lower limb; N13.6 Pyonephrosis; E11.9 Type 2 diabetes mellitus without complications; E66.01 Morbid (severe) obesity due to excess calories; F17.210 Nicotine dependence, cigarettes, uncomplicated; G47.33 Obstructive sleep apnea (adult) (pediatric); G89.29 Other chronic pain; I10 Essential (primary) hypertension; I27.20 Pulmonary hypertension, unspecified; K76.0 Fatty (change of) liver, not elsewhere classified; R79.82 Elevated C-reactive protein (CRP); Z20.822 Contact with and (suspected) exposure to COVID-19; Z88.5 Allergy status to narcotic agent
CPT/HCPCS: 36415; 36600; 71045; 74176; 76700; 80048; 80053; 80202; 81001; 82803; 82962; 83036; 83605; 84145; 84484; 84703; 85025; 86140; 87040; 87081; 87086; 87635; 93005; 93306; 94660; 96361; 96374; 99291; G0378; J1170; J1650; J2310; J2405; J2543; J3370; Q9967; J1815; J7030; J7040; J7120